=== PATIENT | male | born 1980 | race Caucasian/White ===

== ENCOUNTER → 2020-06-29 | Outpatient (CLI) | payer BC, SELFPAY ==
[2020-06-29 19:16] LABS: Cholesterol 209 mg/dL (200); EST Glomerular Filtration Rate 98 mL/min (>60); Est Glom Filt Rate - Afr Amer 119 mL/min (>60)
[2020-06-30 14:10] LABS: High Density Lipoprotein 41 mg/dL
== END | disposition home or self-care (01) ==
PROVIDERS: PCP Family Medicine; Referring Provider Family Medicine; Visit Provider Family Medicine
DX: Z00.00 Encounter for general adult medical examination without abnormal findings (principal)
CPT/HCPCS: 36415; 82465; 82565; 83718

== ENCOUNTER → 2020-09-17 12:21 | Outpatient (CLI) | payer BC, SELFPAY ==
--- NOTE | 2020-09-17 12:35 | RAD_ITS ---
STUDY: X-RAY - LEFT ELBOW REASON FOR EXAM: Male, 40 years old. PAIN ANTERIOR MEDIAL PROXIMAL FOREARM AND DISTAL UPPER ARM TECHNIQUE: 3 view(s) of the elbow. COMPARISON: None. FINDINGS: No acute fracture, dislocation or osseous destruction. No significant joint space narrowing. No significant productive changes. No significant soft tissue swelling. RAD/Elbow min 3 Views IMPRESSION: Left elbow intact without significant degenerative change Electronically Signed: Shun Lay DO at 13:19 EST Tel , Service support ,
== END ==
PROVIDERS: PCP Family Medicine; Referring Provider Family Medicine; Visit Provider Family Medicine
DX: S46.912A Strain of unspecified muscle, fascia and tendon at shoulder and upper arm level, left arm, initial encounter (principal)
CPT/HCPCS: 73080

== ENCOUNTER 2025-09-21 09:09 | Day surgery (SDC) | payer BC, SELFPAY ==
[2025-09-21] VITALS (8 sets, daily range): BP systolic 114–135; BP diastolic 68–100; PULSE 40–59; RESP 16; TEMP 36.1; O2SAT 98–100; BMI 26.4
[2025-09-21] MEDS: Lactated Ringers 1,000 ML 15 ML IV (09:29)
--- NOTE | 2025-09-21 09:38 | PCM.HP.BLA ---
History and Physical Date of Admission: 09/21/25 Date of Service: 09/02/25 MR#: [id number] Acct: [id number] Name: DIANE LOZANO Rep #: [id number] : 1980 Provider: Dr. Apolinar Reilly MD Age/Sex: 45/M Location: [facility] Status: Signed Intake Vital Signs 09/02/2514:59 Height 6 ft Weight: 201 lb 2 oz BMI 27.2 BP 124/85 H Blood Pressure Location Rt brachial Position Sitting Respiration 18 Pulse 80 Pulse Source Monitor Temp 97.2 F L Temp Source Temporal Pulse Oximetry (%) 99 Oxygen Delivery Method room air Intake Visit Reasons: POSITIVE COLOGUARD Chief Complaint: positive cologuard Is patient in pain?: No Allergies No Known Allergies Allergy (Unverified 09/02/25 14:59) Medications Medication Instructions Recorded Confirmed Type NK 09/02/25 09/02/25 History PFSH Medical History (Updated 09/02/25 @ 15:[address] Apolinar Reilly MD) Positive colorectal cancer screening using Cologuard test Surgical History (Updated 09/02/25 @ 14:58 by Ana Fofana LPN) H/O vasectomy Social History (Updated 09/02/25 @ 14:59 by Ana Fofana LPN) Smoking Status: Current every day smoker tobacco type: cigarettes alcohol intake: current substance use type: does not use HPI HPI HPI: The patient is a 45-year-old male presenting for evaluation following a positive Cologuard test. He is referred from Dr. Hernández. The patient reports regular bowel habits, typically having one bowel movement daily, occasionally two if he consumes alcohol the night before. He denies straining, prolonged time on the commode, hematochezia, melena, or any history of hemorrhoids. He has never undergone a colonoscopy or any other endoscopic procedures. He denies any personal or family history of diverticulitis, Crohn's disease, or ulcerative colitis. He reports intermittent heartburn, typically triggered by certain foods such as spicy meals. He manages symptoms with OTC Prilosec, which he takes approximately 7 times per month, sometimes preemptively before anticipated triggers. He denies dysphagia or recurrent pneumonias. He has a history of smoking approximately 1 pack per day and has been attempting to quit. He denies any history of bleeding disorders, use of anticoagulants, or prior abdominal surgeries. Family history is notable for colon cancer in his maternal grandfather, diagnosed in the mid- when his grandfather was approximately 60-70 years old. His grandfather did not from colon cancer. He also reports a family history of pancreatic cancer on his father's side. ROS General General: No weight change, appetite, fatigue, colon cancer, breast cancer or weakness HEENT HEENT: No difficulty swallowing, eye injury, eye surgery, swollen glands or hoarseness Endo Endocrine: No thyroid disease, diabetes mellitus, thyroid cancer, Hair loss, heat intolerance or cold intolerance Skin Skin: No rash or changing moles Musc Musculoskeletal: Yes arthritis; No back problems, rheumatoid arthritis, gout or joint pain Cardio Cardiovascular: No murmur, pacemaker, heart disease, atrial fibrillation, high blood pressure, heart attack, heart stent, palpitations, shortness of breath with exertion or chest pain Psych Psychiatric: No depression, anxiety or hearing voices Resp Respiratory: No shortness of breath, No sleep apnea, No cough, No COPD, No asthma, No emphysema and No wheezing Gastro Gastrointestinal: No abdominal pain, No nausea or vomiting, No diarrhea, No constipation, No blood in stool, No acid reflux, No hemorrhoids, No ulcers, No gallbladder problem and No black,tarry stools Sánchez Hematologic: No blood thinners, No blood disorders, No bleeding, No anemia and No blood clots Neuro Neurologic: No numbness, No tingling and No weakness Exam Const General: cooperative and comfortable Orientation: alert, awake and oriented x3 Resp Effort & Inspection: normal respiratory effort GI Other: No scars, normal habitus, nondistended, soft, small umbilical hernia present with approximately 1 cm defect and reducible fatty contents, otherwise nontender to palpation x 4 quadrants. Assessment and Plan Assessment and Plan (1) Positive colorectal cancer screening using Cologuard test: Status: Acute Comment: - Positive Cologuard test; no current symptoms - Family history of colon cancer in maternal grandfather, potentially diagnosed around age 60. - Colonoscopy indicated due to positive Cologuard result; discussed findings associated with positive Cologuard (4% cancer, 20% advanced adenoma, 30% non-advanced adenoma, 45% non-colorectal neoplasia). - Colonoscopy to be scheduled; 2-day bowel prep required prior to procedure. - Discussed importance of adequate bowel prep to ensure clear visualization and potential for 10-year follow-up interval. - Explained colonoscopy procedure, including polypectomy and possible tattooing of polyp sites for future surveillance. - Reviewed risks and benefits of colonoscopy, including potential findings and need for close follow-up if advanced adenoma is found. - Patient education provided regarding procedure, sedation, need for truck driver helper, and post-procedure observation. Plan: Plan will be to complete colonoscopy on first mutually agreeable date (patient shares preference for some time still before 2025) under local MAC. Pre-procedure prep discussed and paper instructions provided. Patient is also made aware that he will need to have a truck driver helper with him the day of the procedure. (2) GERD (gastroesophageal reflux disease): Status: Acute Comment: - GERD symptoms occurring approximately 7 times per month, managed with OTC Prilosec as needed. - Advised lifestyle modifications: avoid lying down within 3 hours of eating, elevate head of bed, avoid caffeine and spicy foods. - Discussed potential need for upper endoscopy if symptoms increase in frequency or severity; patient to notify if this occurs prior to scheduled colonoscopy. - Discussed increased risk of esophageal cancer with history of GERD and smoking; encouraged smoking cessation. Plan: – Lifestyle modifications at present. No strong indication to proceed with EGD at this time based on symptom frequency. (3) Umbilical hernia without obstruction and without gangrene: Status: Acute Comment: - Small umbilical hernia noted on exam, approximately 1 cm in size, reducible and asymptomatic. - Educated patient on signs of incarceration or strangulation (persistent pain, firm protrusion, purplish discoloration) and advised to seek prompt medical attention if these occur. - Discussed likelihood of hernia enlargement over time due to aging and physical activity; advised monitoring for changes in size or symptoms. Plan: – Watchful waiting/conservative management Orders: Orders Colonoscopy 10/01/25 I have examined the patient and the H&P has been reviewed. There are no clinical changes since date of exam. Patient confirms he completed prep and his output is now clear. He denies any abdominal discomfort. His exam is benign. Post procedure pathology expectations were conveyed regarding their reporting. Neither patient nor his spouse have any further questions. Proceed to endoscopy suite for colonoscopy after positive Cologuard testing.
--- NOTE | 2025-09-21 09:42 | PRE.ANES_ITS ---
ASA Classification* ASA Classification ASA Classification: 1 Assessment & Plan Anesthesia* Anesthesia Assessment Anesthesia Assessment: Discussed sedation and/or anesthesia options, risks, benefits, and alternatives with patient/parents/legal guardian/POA. Questions invited. The patient/parents/legal guardian/POA seems to understand and agrees to proceed with anesthesia plan. Reviewed the physical assessment, medical history, allergy history and patient home medications list prior to surgery/procedure/anesthetic and documented any changes. Performed airway and anesthesia risk assessments. Anesthesia Type Anesthesia Type: MAC History Source History Obtained from:: Patient, Chart and Significant Other (Spouse in the room) Anesthesia Focused Assessment* Temperature: 9704 F Pulse Rate: 59 Blood Pressure: 135/100 Respiratory Rate: 16 Pulse Ox: 100 Oxygen Delivery Method: Room Air Airway Assessment Mouth opens: >3 cm Mallampati Score: II Teeth Condition: Intact Neck Range of motion (ROM): Full ROM Labs Anesthesia Preop lab: CBC WBC, (4.4-11.0) 6.6 K/mm3 07/31/15, 10:53 RBC, (4.6-6.2) 4.80 M/mm3 07/31/15, 10:53 Hgb, (13.0-16.5) 15.1 g/dl 07/31/15, 10:53 Hct, (40-54) 44.3 % 07/31/15, 10:53 Plt Count, (150-450) 211 K/mm3 07/31/15, 10:53 CHEMISTRY Potassium, (3.5-5.1) 4.1 mmol/L 07/31/15, 10:53 Sodium, (136-145) 139 mmol/L 07/31/15, 10:53 BUN, (7-18) 16 mg/dL 07/31/15, 10:53 Creatinine, (0.70-1.30) 0.90 mg/dL 06/29/20, 17:07 Glucose, (70-110) 92 mg/dL 07/31/15, 10:53 COAG Pre-Assessment Diagnosis/Proposed Procedure Planned Operative Procedure(s): CSCOPE Anesthesia History Anesthesia History - external relations director: Anesthesia History - external relations director Hx Hospitalization No 09/16/25 12:29 Any Problems With Anesthesia No 09/16/25 12:29 Cholinesterase deficiency No 09/16/25 12:29 You/Your Family Experience No 09/16/25 12:29 fever (hyperthermia) with Relationship Recent Exposure to Contagious Disease Does patient have nerve No 09/16/25 12:29 stimulator Patient instructed to have device shut off --Does patient have Pacemaker No 09/21/25 09:18 or ICD? When Was Last Pacemaker Check QUESTION #4 FULL TEXT: You/Your Family Experience fever (hyperthermia) with Anesthesia Last Oral Intake Last Oral intake: Last Oral Intake NPO since 07:00 09/21/25 09:18 Meds taken in AM with sips of No 09/21/25 09:18 water? Meds patient instructed to take am of surgery PONV PONV - external relations director: PONV - external relations director Female No 09/16/25 12:29 HX of Motion Sickness Yes 09/16/25 12:29 HX of N/V After Surgery No 09/16/25 12:29 Non-Smoker No 09/16/25 12:29 Duration of Surgery greater No 09/16/25 12:29 than 60 minutes Number of Risk Factors 1 09/16/25 12:29 PONV Score Low Risk 09/16/25 12:29 Height & Weight Height & Weight: Anesthesia: Height & Weight Height 6 ft 09/21/25 09:18 Weight: 88.5 kg 09/21/25 09:18 Body Mass Index (BMI) 26.4 09/21/25 09:18 Respiratory Assessment Respiratory Assessment - external relations director: Respiratory Tract Infection Hx - external relations director Hx Respiratory Tract Infection No 09/16/25 12:29 STOP Sleep Apnea STOP Sleep Apnea - external relations director: STOP Sleep Apnea - external relations director Hx Hypertension No 09/16/25 12:29 Hx Sleep Apnea No 09/16/25 12:29 CPAP BIPAP Do you snore loudly (louder No 09/16/25 12:29 than talking or can be heard Do you often feel tired/ No 09/16/25 12:29 fatigued/ sleepy during daytime? Has anyone observed you stop No 09/16/25 12:29 breathing during sleep? STOP Results Negative 09/16/25 12:29 QUESTION #5 FULL TEXT : Do you snore loudly (louder than talking or can be heard through closed doors)? Tobacco Use History Tobacco Use History - external relations director: Tobacco Use History - external relations director Tobacco Use Smoking Status Current every day smoker 09/16/25 12:29 Hx Tobacco Use Yes 09/16/25 12:29 Years Smoking Packs Smoked per Day Smoking Cessation Date was within the last 15 years Hx Smoking Cessation Date Hx Smoking Cessation Counseling Hematologic Medial History Hematologic Hx - external relations director: Hematologic Medical Hx - ic design engineer Hx of Blood Transfusion No 09/16/25 12:29 Hx of Transfusion in last 3 No 09/16/25 12:29 Months Date of Last Transfusion (if within last 3 months) Ever experience any problems No 09/16/25 12:29 with transfusion(s)? Specify any problems Hx of Preganancy in last 3 N/A 09/16/25 12:29 Months Nurse Filling Out Transfusion DSCHRIBER 09/16/25 12:29 & Questions: Date: 09/16/25 09/16/25 12:29 Time: 12:31 09/16/25 12:29 Patient unable to answer at this time (ie. confused, unrespo /Reproduction History /Reproductive History - external relations director: /Reproductive Hx- external relations director Hx Now No 09/16/25 12:29 Gestational Age (in weeks): EDC: Hx Hx Para Hx Section SAB No 09/16/25 12:29 Does the father of the baby or his family experience fever w Father of the baby Malignant Hypertension history comment Active Medications Active Medications: Current Medications Generic Name Dose Route Start Last Admin Trade Name Freq PRN Reason Stop Dose Admin Lactated Ringer's 1,000 mls @ 15 mls/hr 09/21/25 09:15 09/21/25 09:29 IV 15 mls/hr .Q48H ADAIR Administration PFSH Medical History Wears glasses Anxiety Alcohol use Arthritis Back pain Heartburn Smoker History of pain when walking Positive colorectal cancer screening using Cologuard test Home Medications Medication Instructions Recorded Last Taken Type NK 09/02/25 Unknown History Allergy/AdvReac Type Severity Reaction Status Date / Time No Known Allergies Allergy Verified 09/21/25 09:17 Surgical History Hx of eye surgery H/O vasectomy Social History Smoking Status: Current every day smoker tobacco type: cigarettes alcohol intake: current substance use type: does not use Review of Systems (Anesthesia) ROS Narrative System reviewed and no additional complaints, except as documented.
--- OUTSIDE RECORDS SUMMARY | 2025-09-21 09:44 | XMS RPT_ITS | CCD ---
Author Organization [facility] Care Team Providers Care Assembler Dc Field Yoke Name Role Phone Shun Hernández Referring Unavailable Shun Hernández Primary Care Unavailable Apolinar Reilly Attending Unavailable Encounters Encounter Date Encounter Type Care Provider Facility Start: 09-02-2025 ambulatory Shun Edgar Facility:[facility] Payers Date Payer Category Payer Self-pay 2025 Unknown [id number] Unknown [id number] Summary Purpose Family History No Family History Records Found Advance Directives No Advanced Directives Records Found Additional Source Comments (unrecognized sect ion and content) No Status Records Found INFORMATION SOURCE (unrecogn ized section and content) DATE CREATED AUTHOR 09/02/2025 [facility] FOR RECORDS PERTAINING TO PATIENTS WHO ARE OR HAVE BEEN ENROLLED IN A CHEMICAL DEPENDENCY/SUBSTANCEABUSE PROGRAM, SOME INFORMATION MAY BE OMITTED. This clinical summary was aggregated from multiple sources. Caution should be exercised in using it in the provision of clinical care. This summary normalizes information from multiple sources, and as a consequence, information in this document may materially change the coding, format and clinical context of patient data. In addition, data may be omitted in some cases. CLINICAL DECISIONS SHOULD BE BASED ON THE PRIMARY CLINICAL RECORDS. [facility]. provides no warranty or guarantee of the accuracy or completeness of information in this document.
--- NOTE | 2025-09-21 10:00 | COLBX_PTH ---
PATIENT: DIANE LOZANO LOC: EN U#:[id number] AGE/SX: 45/M ROOM: RE09/21/[address]: Dr. Apolinar Reilly MD : 1980 BED: DIS: 09/21/2025 SPEC #: [id number] RECD: 09/21/25 13:02 STATUS: PAM MIKE #: [id number] THADDEUS: 09/21/25 10:[address]: Apolinar Reilly DEPT: SURGICAL PATHOLOGY RECD BY: Elias Cordero ENTERED: 09/22/25 09:40 SP TYPE: COLON BX OTHR DR: Dr. Shun Hernández MD Tissues: A - Rectum, NOS B - Transverse colon C - Sigmoid colon biopsy Procedures: Surgery Specimen Level IV HEADER OPERATION: Colonoscopy with polypectomy x3 PRE-OP DIAGNOSIS: Positive colorectal cancer screening using Cologuard test TISSUE SUBMITTED: A- Rectal polyp, B- Proximal transverse polyp, C- Distal sigmoid polyp MICROSCOPIC DIAGNOSIS A. Rectum, polyp, polypectomy: - Hyperplastic polyp. B. Colon, transverse, polyp, polypectomy: - Mucosal prolapse with superficial hyperplastic crypt change and focal mucosal lymphoid aggregate. - No dysplasia seen (deeper sections examined). C. Colon, sigmoid, polyp, polypectomy: - Hyperplastic polyp. MICROSCOPIC DESCRIPTION Slides are reviewed. GROSS DESCRIPTION A. Received in fixative is one container labeled with the patient's name and designated "Rectal polyp." The specimen consists of one irregular fragment of tang tissue that measures 0.4 cm. The specimen is totally submitted in one cassette. B. Received in fixative is one container labeled with the patient's name and designated "Proximal transverse polyp." The specimen consists of two irregular fragments of tang tissue that measure 0.2 and 0.5 cm. The specimen is totally submitted in one cassette. C. Received in fixative is one container labeled with the patient's name and designated "Distal sigmoid polyp." The specimen consists of one irregular fragment of tang tissue that measures 0.4 cm. The specimen is totally submitted in one cassette. LA 09/21/2025 CPT:36766q6
--- NOTE | 2025-09-21 10:37 | OP.COLON_ITS ---
Patient Name: Epifanio Chen Procedure Date: 09/21/2025 9:52 AM Date of : 1980 Age: 45 Procedure: Colonoscopy Indications: Positive Cologuard test Providers: Apolinar Reilly MD Medicines: See the Anesthesia note for documentation of the administered medications Patient Profile: Last Colonoscopy: none. The patient's first colonoscopy is today. Complications: No immediate complications. Estimated blood loss: Minimal. Procedure: Pre-Anesthesia Assessment: - The heart rate, respiratory rate, oxygen saturations, blood pressure, adequacy of pulmonary ventilation, and response to care were monitored throughout the procedure. - The heart rate, respiratory rate, oxygen saturations, blood pressure, adequacy of pulmonary ventilation, and response to care were monitored throughout the procedure. After I obtained informed consent, the scope was passed under direct vision. Throughout the procedure, the patient's blood pressure, pulse, and oxygen saturations were monitored continuously. The pediatric colonoscope was introduced through the anus and advanced to the cecum, identified by the appendiceal orifice, IC valve and transillumination. The colonoscopy was performed without difficulty. The patient tolerated the procedure well. The quality of the bowel preparation was adequate to identify polyps. Scope In: 9:56:09 AM Scope Withdrawal Time 0 hours 19 minutes 14 seconds Scope Out: 10:26:08 AM Total Procedure Duration Time 0 hours 29 minutes 59 seconds Findings: The perianal and digital rectal examinations were normal. A 4 mm polyp was found in the rectum. The polyp was semi-pedunculated. The polyp was removed with a hot snare. Resection and retrieval were complete. Estimated blood loss: none. A 3 mm polyp was found in the proximal transverse colon. The polyp was semi-sessile. Biopsies were taken with a cold forceps for histology. Estimated blood loss was minimal. A 5 mm polyp was found in the distal sigmoid colon. The polyp was semi-pedunculated. The polyp was removed with a hot snare. Resection and retrieval were complete. Anal papilla(e) were hypertrophied. No biopsies or other specimens were collected for this exam. The exam was otherwise without abnormality on direct and retroflexion views. Impression: - One 4 mm polyp in the rectum, removed with a hot snare. Resected and retrieved. - One 3 mm polyp in the proximal transverse colon. Biopsied. - One 5 mm polyp in the distal sigmoid colon, removed with a hot snare. Resected and retrieved. - Anal papilla(e) were hypertrophied. No specimens collected. - The examination was otherwise normal on direct and retroflexion views. Recommendation: - Discharge patient to home (via wheelchair). - Resume previous diet today. - No aspirin, ibuprofen, naproxen, or other non-steroidal anti-inflammatory drugs for 2 days after polyp removal. - Await pathology results. - Repeat colonoscopy date to be determined after pending pathology results are reviewed for surveillance based on pathology results. - Telephone my office for pathology results in 1 week. Procedure Code(s): --- Professional --- 35016, Colonoscopy, flexible; with removal of tumor(s), polyp(s), or other lesion(s) by snare technique 27992, 59, Colonoscopy, flexible; with biopsy, single or multiple Diagnosis Code(s): --- Professional --- D12.8, Benign neoplasm of rectum D12.3, Benign neoplasm of transverse colon (hepatic flexure or splenic flexure) D12.5, Benign neoplasm of sigmoid colon K62.89, Other specified diseases of anus and rectum R19.5, Other fecal abnormalities CPT copyright 2021 [employer] [employer]. All rights reserved. The codes documented in this report are preliminary and upon surveyor mine review may be revised to meet current compliance requirements. Apolinar Reilly MD 09/21/2025 10:37:20 AM This report has been signed electronically. Number of Addenda: 0 Note Initiated On: 09/21/2025 9:52 AM
--- NOTE | 2025-09-21 10:38 | OP.PROVAT_ITS ---
09/21/2025 Shun Hernández [address] [place] [address] Re : Colonoscopy procedure for Epifanio Chen Dear Dr. Hernández This procedure was performed on Sunday, September 21, 2025. My impressions and recommendations are as follows: Impressions : - One 4 mm polyp in the rectum, removed with a hot snare. Resected and retrieved. - One 3 mm polyp in the proximal transverse colon. Biopsied. - One 5 mm polyp in the distal sigmoid colon, removed with a hot snare. Resected and retrieved. - Anal papilla(e) were hypertrophied. No specimens collected. - The examination was otherwise normal on direct and retroflexion views. Recommendations : - Discharge patient to home (via wheelchair). - Resume previous diet today. - No aspirin, ibuprofen, naproxen, or other non-steroidal anti-inflammatory drugs for 2 days after polyp removal. - Await pathology results. - Repeat colonoscopy date to be determined after pending pathology results are reviewed for surveillance based on pathology results. - Telephone my office for pathology results in 1 week. My findings are described in the full procedure note, which is enclosed. If I can be of further assistance, please feel free to contact me at Doctor phone number(s): , Work: . Sincerely, Apolinar Reilly MD 09/21/2025 10:37:20 AM This report has been signed electronically.
--- NOTE | 2025-09-21 10:39 | PCM.POST.ANE ---
Anesthesia: Postop Eval I Current Vital Signs Temperature: 97 F Pulse Rate: 54 Blood Pressure: 114/68 Respiratory Rate: 16 Pulse Ox: 100 Oxygen Delivery Method: Room Air Assessment Airway patent: Yes Spontaneous unlabored respirations: Yes Mental status: Asleep nausea: No Vomiting: No Anesthesia Complication: No Fluid Hydration Crystalloid volume administer (ml): 900 Total IV fluid infused: 900 Progress Note Anesthesia document: Postop Eval 1 completed: Yes
--- NOTE | 2025-09-21 12:21 | PCM.POSTANE2 ---
Anesthesia Postop Eval I Sum Postop Eval Completion status Anesthesia document: Postop Eval 1 completed: Yes Anesthesia Postop Eval I Summary Anesthesia Postop Eval I Summary: Anesthesia Postop Eval I: Assessment Summary Airway patent Yes 09/21/25 10:42 [email or web address] Spontaneous unlabored Yes 09/21/25 10:42 [email or web address] respirations Mental status Asleep 09/21/25 10:42 [email or web address] nausea No 09/21/25 10:42 [email or web address] Vomiting No 09/21/25 10:42 [email or web address] Anesthesia Postop Eval I: Fluid Summary Crystalloid volume administer 900 09/21/25 10:42 [email or web address] (ml) Colloids volume administered ( ml) Blood Product volume administered (ml) Total IV fluid infused 900 09/21/25 10:42 [email or web address] Anesthesia Postop Eval I: Summary Notes Anesthesia Complication No 09/21/25 10:42 [email or web address] Anesthesia Complication Comment: Post-operative progress note Anesthesia: Postop Eval II Evaluation Mental status: Awake and Calm Pain Level: 1 nausea: No Vomiting: No Complications Anesthesia Complication: No
== END 2025-09-21 11:20 | disposition home or self-care (01) ==
LOC: EN 09:10 → AC 09:11
PROVIDERS: PCP Family Medicine; Referring Provider Surgery; Visit Provider Surgery
PROC: 0DJD8ZZ Inspection of Lower Intestinal Tract, Via Natural or Artificial Opening Endoscopic (ICD-10-PCS; CPT 45378; principal; 2025-09-21 09:55)
DX: K63.5 Polyp of colon (principal); Z80.0 Family history of malignant neoplasm of digestive organs; K62.1 Rectal polyp; K62.89 Other specified diseases of anus and rectum; K21.9 Gastro-esophageal reflux disease without esophagitis; K42.9 Umbilical hernia without obstruction or gangrene; F17.210 Nicotine dependence, cigarettes, uncomplicated
CPT/HCPCS: 45385; 45380; 88305; J2405